=== PATIENT | male | born 1945 | race Caucasian/White ===

== ENCOUNTER 2024-11-18 14:27 | Emergency (ER) | payer BC, MEDICARE, OTHER | END 2024-11-18 15:43 | disposition home or self-care (01) | LOC: JD.ED 14:27 | DX: R04.0 Epistaxis (principal); I10 Essential (primary) hypertension; K21.9 Gastro-esophageal reflux disease without esophagitis; Z86.16 Personal history of COVID-19; Z79.82 Long term (current) use of aspirin; Z79.899 Other long term (current) drug therapy | CPT/HCPCS: 99283; A9270 ==